=== PATIENT | male | born 2000 | race Native Hawaiian/Other Pacific Islander ===

== ENCOUNTER 2024-10-10 05:56 | Inpatient (IN) | payer OTHER ==
[~2024-10-10] VITALS: Ht 165.1 cm; Wt 79.7 kg
[2024-10-10 07:02] LABS: HEMATOCRIT 46.6 % (42.0-52.0); HEMOGLOBIN 16.1 g/dl (13.5-17.5); MEAN CORPUSCULAR HEMOGLOBIN 31.8 pg (27.0-33.0); MEAN CORPUSCULAR HGB CONC 34.5 g/dl (32.0-36.5); MEAN CORPUSCULAR VOLUME 91.9 fl (80.0-96.0); PLATELET COUNT, AUTOMATED 188 10^3/uL (150-450); RED BLOOD COUNT 5.07 10^6/uL (4.30-6.10); WHITE BLOOD COUNT 6.5 10^3/uL (4.0-10.0)
[2024-10-10 07:24] LABS: ETHYL ALCOHOL (ETHANOL) 0.162 % (0.000-0.010)
[2024-10-10 07:25] LABS: SALICYLATE LEVEL < 3.0 MG/DL (<30)
[2024-10-10 07:34] LABS: ALBUMIN 4.7 G/DL (3.2-5.2); ALKALINE PHOSPHATASE 75 U/L (40-129); ALT/SGPT 18 U/L (7.0-40); AMPHETAMINES LEVEL URINE NEGATIVE (NEGATIVE); AST/SGOT 21 U/L (<34); BARBITURATES URINE NEGATIVE (NEGATIVE); BILIRUBIN,DIRECT 0.2 MG/DL (<0.4); BILIRUBIN,TOTAL 0.4 MG/DL (0.3-1.2); BLOOD UREA NITROGEN 10 MG/DL (9-23); CARBON DIOXIDE LEVEL 28 MMOL/L (20-31); CHLORIDE LEVEL 109 MMOL/L (98-107); CREATININE FOR GFR 1.09 MG/DL (0.70-1.30); GLOMERULAR FILTRATION RATE > 60.0 (>60); GLUCOSE, FASTING 88 MG/DL (60-100); POTASSIUM SERUM 4.2 MMOL/L (3.5-5.1); SODIUM LEVEL 146 MMOL/L (136-145); TOTAL PROTEIN 8.4 G/DL (5.7-8.2)
[2024-10-10 07:35] LABS: BENZODIAZEPINES URINE NEGATIVE (NEGATIVE); COCAINE METABOLITE URINE NEGATIVE (NEGATIVE); METHADONE URINE NEGATIVE (NEGATIVE); OPIATES URINE NEGATIVE (NEGATIVE); PHENCYCLIDINE URINE NEGATIVE (NEGATIVE)
[2024-10-10 07:37] LABS: CANNABINOIDS URINE POSITIVE (NEGATIVE)
[2024-10-10 08:32] LABS: THYROID STIMULATING HORMONE 1.043 uIU/ML (0.55-4.78)
[2024-10-10] MEDS: MULTIVITAMINS/MINERALS THERAP 1 TAB PO SCH (09:00)
[2024-10-10] MEDS: FOLIC ACID 1MG TAB PO SCH (09:00)
[2024-10-10] MEDS ORDERED: HOME MED LIST COMPLETE! XX SCH (15:40)
[2024-10-10 16:20] VITALS: BP 133/82; TEMP 98.2; O2SAT 97
[2024-10-10] MEDS ORDERED: MAALOX 30 ML SUSP *UDC PO PRN (16:50)
[2024-10-10] MEDS ORDERED: OLANZapine ORAL DISINTEGRATING TAB 5MG PO PRN (16:50)
[2024-10-10] MEDS ORDERED: ACETAMINOPHEN 325 MG TAB PO PRN (16:50)
[2024-10-10] MEDS ORDERED: MOM 30ML SUSPENSION UDC PO PRN (16:50)
[2024-10-10] MEDS ORDERED: IBUPROFEN 400MG TAB PO PRN (16:50)
[2024-10-10] MEDS ORDERED: LORazepam 2 MG TAB PO PRN (16:50)
[2024-10-10] MEDS: THIAMINE 100 MG TAB PO SCH (16:56)
[2024-10-10] MEDS: diphenhydrAMINE 25MG CAP PO PRN (18:45)
[2024-10-11 06:24] VITALS: BP 134/80; TEMP 97; O2SAT 99
[2024-10-11 07:55] VITALS: BP 141/87; TEMP 97.6; O2SAT 98
[2024-10-11 14:51] VITALS: BP 137/94; TEMP 97.8; O2SAT 97
[2024-10-11 15:50] VITALS: BP 148/93; TEMP 98; O2SAT 100
[2024-10-11 22:00] VITALS: BP 117/72
[2024-10-12 06:32] VITALS: BP 139/88; TEMP 98.5; O2SAT 99
[2024-10-12 06:35] VITALS: BP 139/88
[2024-10-12 15:44] VITALS: BP 130/80; TEMP 97.7; O2SAT 97
[2024-10-12] MEDS: traZODone 50 MG TAB PO PRN (20:45)
[2024-10-13 06:37] VITALS: BP 126/86; TEMP 98; O2SAT 96
== END 2024-10-13 13:07 | disposition home or self-care (01) | DRG 898 ==
LOC: M ED 05:56 → M ED INP 13:01 → M PSY 15:39
PROVIDERS: ADMIT Psychiatry & Neurology Psychiatry; ATTEND Psychiatry & Neurology Psychiatry
DX: F10.14 Alcohol abuse with alcohol-induced mood disorder (principal); S19.89XA Other specified injuries of other specified part of neck, initial encounter; X83.8XXA Intentional self-harm by other specified means, initial encounter; Y92.009 Unspecified place in unspecified non-institutional (private) residence as the place of occurrence of the external cause; Y93.89 Activity, other specified; Y99.8 Other external cause status